=== PATIENT | female | born 1955 | race Caucasian/White ===

== ENCOUNTER 2024-10-20 17:50 | Emergency (ER) | payer OTHER, SELFPAY ==
[2024-10-20 18:02] VITALS: BP 133/82; PULSE 60; RESP 16; TEMP 36.8; O2SAT 100; BMI 28.1
--- NOTE | 2024-10-20 19:40 | DI.RAD.S_ITS ---
PROCEDURE: XR KNEE LT 3V INDICATIONS: felt pop in knee with pain after pop TECHNIQUE: 3 views of the knee were acquired. COMPARISON: None. FINDINGS: Bones: Distracted fracture of the patella. Soft tissues: Moderate joint effusion. No suspicious soft tissue calcifications. IMPRESSION: Distracted fracture of the patella. Dictated by: Ruperto Loyd M.D. on 10/20/2024 at 20:09 Approved by: Ruperto Loyd M.D. on 10/20/2024 at 20:10
--- NOTE | 2024-10-20 20:28 | PC.NURSE ---
Pt states pain 9/10. Pt's had previous surgery to left leg with tibial plateau fracture ORIF done by Dr. Harris Calhoun. Pt states that previous 3 left patellar fractures did not have surgery on, knee was splinted with brace until knee was healed. Information given top provider, pain meds ordered. Pt on stretcher in position of comfort at this time, RA, breathing even/equal/unlabored at this time. Pt's family member at bedside.
[2024-10-20] MEDS: HYDROMORPHONE 1 MG INJ IV (20:33)
[2024-10-20 20:34] VITALS: PULSE 58; O2SAT 100
[2024-10-20 21:00] VITALS: BP 142/66; PULSE 62; O2SAT 98
--- NOTE | 2024-10-20 21:00 | ED_ITS ---
HPI - Extremity Injury (Lower) General Chief Complaint: Extremity Injury, Lower Stated Complaint: Pop in left knee after missing a stair,no fall Time Seen by Provider: 10/20/24 20:24 Source: patient and EMS Mode of arrival: EMS History of Present Illness HPI Narrative: Patient is a 69-year-old female who presents via EMS from [facility] after walking down stairs and missing a step, states that she felt/heard a pop in her left knee with immediate pain, denies actually falling, states that she does have a history of patellar fractures to the left as well as a ORIF of the left tib-fib to the left. Patient was given 50 mcg of fentanyl 4 mg Zofran on route, states that this did help her pain initially but at time of evaluation pain is back up 01/08. She denies any blood thinners denies any other injuries at this time. Related Data Previous Rx's ?Medication ?Instructions ?Recorded oxycodone-acetaminophen 5 mg-325 1 tab PO Q6H PRN pain 3 days #9 10/20/24 mg tablet (Percocet) tabs Allergies Allergy/AdvReac Type Severity Reaction Status Date / Time azithromycin Allergy Nausea Verified 10/20/24 18:02 tramadol Allergy Nausea Verified 10/20/24 18:02 Review of Systems Review of Systems Narrative: General: Denies fever, chills, weight loss HEENT: Denies headache, eye drainage, eye irritation, head trauma, sore throat, voice change Cardiovascular: Denies any chest pain, palpitations, tachycardia Respiratory: Denies any shortness of breath, cough, wheeze, stridor GI/: Denies any abdominal pain, nausea, vomiting, diarrhea, bright red blood per rectum, melanotic stools, urinary frequency, urinary retention, dysuria, hematuria MSK: Positive left knee pain Skin: Denies any rashes, lesions, discoloration Neuro: Denies any headache, lightheadedness, dizziness, fainting, weakness Psych: Denies SI/HI Patient History Smoking Status: Never smoker Exam Narrative Exam Narrative: General: Cooperative, well-developed, not in acute distress HEENT: Normocephalic, atraumatic, PERRLA, normal sclera, eyelids normal Neck: Active full range of motion, atraumatic Chest: Normal to inspection, negative crepitus, no overlying erythema ecchymosis Respiratory: Normal respiratory effort, not in acute respiratory distress, clear to auscultation bilaterally negative cough, wheeze, tachypnea, rhonchi, rales Cardiology: Regular rate rhythm negative gallop, murmur, rubs GI/: No tenderness to palpation, soft, non rigid, normal to inspection, exam deferred MSK: Ecchymosis noted to the left knee, however neurovascularly intact is able to flex and extend however slightly decreased secondary to pain, Skin: No rashes or lesions noted Neuro: Alert awake oriented x3, moves all 4 extremities spontaneously, cranial nerves intact, able to answer all questions appropriately follows commands appropriately Psych: Cooperative, negative suicidal or homicidal ideations Initial Vital Signs Initial Vital Signs: Vital Signs Temperature 98.2 F 10/20/24 18:02 Pulse Rate 60 10/20/24 18:02 Respiratory Rate 16 10/20/24 18:02 Blood Pressure 133/82 10/20/24 18:02 Pulse Oximetry 100 10/20/24 18:02 Oxygen Delivery Method Room Air 10/20/24 18:02 Course Orders Ordered: ED Orders 10/20/24 19:40 XR knee LT 3V Stat Discontinued Medications Hydromorphone HCl (Hydromorphone 1 Mg Inj) 1 mg IV NOW ONE Stop: 10/20/24 20:25 Last Admin: 10/20/24 20:33 Dose: 1 mg Documented By: MILLA Vital Signs Vital signs: Vital Signs - 8 hr 10/20/24 18:02 Temperature 98.2 F Pulse Rate 60 Respiratory Rate 16 Blood Pressure 133/82 Pulse Oximetry 100 Oxygen Delivery Method Room Air MDM - Extremity Injury (Lower) Differential Diagnosis Differential diagnosis: Likely other (Fracture dislocation sprain strain contusion) Imaging Data Extremity x-ray #1: Radiologist's Impression: [address] [address] XRay Report Signed Patient: Tameka Bowden MR#: [id number] : 1955 Acct:[id number] Age/Sex: 69 / F Date of Service: 10/20/24 Loc: ED Accession Number: [id number] Procedure: XR knee LT 3V Ordering Provider: Des Vivar D.O. PROCEDURE: XR KNEE LT 3V INDICATIONS: felt pop in knee with pain after pop TECHNIQUE: 3 views of the knee were acquired. COMPARISON: None. FINDINGS: Bones: Distracted fracture of the patella. Soft tissues: Moderate joint effusion. No suspicious soft tissue calcifications. IMPRESSION: Distracted fracture of the patella. MDM Narrative Medical decision making narrative: Patient is a 69-year-old female with a past medical history of left-sided patellar fracture and ORIF of left tib-fib presenting for left knee pain swelling after she was walking down stairs at [facility]. She states that she missed a step and felt/heard a pop, had immediate pain to the left lower extremity, however she states that she did not actually fall, at time of evaluation ecchymosis noted to the left knee however she is neurovascularly intact, she is not complaining of any other injuries, not on any blood thinners, she is able to slightly extend and flex the left knee however slowed secondary to pain. Patient was placed in a knee immobilizer told to be nonweightbearing and to follow up with Orthopedic surgery, she states that she already has an orthopedic surgeon due to her history of fractures, she also states that she is scheduled to have a right hip repair in April, she will be given symptomatic treatment and discharged home with outpatient follow up, she was given strict return precautions she verbalized understanding of this and agrees to being discharged home with outpatient follow up Discharge Plan Departure Patient Disposition: Home Clinical Impression: Closed fracture of left patella Instructions: How to Use Crutches, DI for Patella Fracture Activity Restrictions/Additional Instructions: Please follow up with the orthopedic surgeon in outpatient setting for your patellar fracture Please elevate continue using the knee immobilizer be nonweightbearing and use ice as needed Please read the discharge instructions sheet carefully and bring all papers to all doctor follow-up visits, as it may contain information that your doctor may want to see. Disease processes change and evolve, if your symptoms worsen or if you develop any new symptoms that are concerning to you please return for evalua tion. Your evaluation today does not show any evidence of any life- threatening/serious illnesses requiring admission to the hospital or surgery. Please follow-up with your doctor for re-evaluation in approximately 1 day. Seek immediate medical attention for any worrisome symptoms. *If you do not have a primary care provider please contact the [facility] Resource line at [phone]. They will ask some questions about your medical history and help get you set up with a doctor in the community. Prescriptions: New oxycodone-acetaminophen [Percocet] 5-325 mg tablet 1 tab PO Q6H PRN (Reason: pain) 3 Days Qty: 9 0RF Stand Alone Forms: Patient Portal/API
[2024-10-20] MEDS: ONDANSETRON 4 MG ODT PREPACK 1 BOTTLE MISC (21:21)
[2024-10-20] MEDS: OXYCODONE/APAP 5/325 PREPACK 1 BOTTLE MISC (21:21)
== END 2024-10-20 21:37 | disposition home or self-care (01) ==
PROVIDERS: Emergency Provider Student in an Organized Health Care Education/Training Program
DX: S82.002A Unspecified fracture of left patella, initial encounter for closed fracture (principal); X58.XXXA Exposure to other specified factors, initial encounter
CPT/HCPCS: 73562; 96374; 99284; J1171